=== PATIENT | male | born 1930 | race African-American/Black ===

== ENCOUNTER 2019-04-08 13:29 | Emergency (ER) | payer MEDICARE ==
[~2019-04-08] VITALS: Ht 182.9 cm; Wt 72.6 kg
--- NOTE | 2019-04-08 13:54 | NUR ---
brought by family with intermittent nose bleeding without dizziness. now bleeding controlled. took aspirin yesterday. placed telemetry monitor and changed the hospital gown.
[2019-04-08 14:42] LABS: BASOPHILS # (AUTO) 0.1 K/uL (0.0-8.0); BASOPHILS % (AUTO) 0.6 % (0.0-2.0); EOSINOPHILS # (AUTO) 0.2 K/uL (0.0-0.7); EOSINOPHILS % (AUTO) 1.6 % (0.0-7.0); HEMATOCRIT 41.1 % (36.7-47.1); HEMOGLOBIN 13.5 g/dL (12.5-16.3); LYMPHOCYTES # (AUTO) 1.3 K/uL (20.0-40.0); LYMPHOCYTES % (AUTO) 12.6 % (20.5-51.5); MEAN CORPUSCULAR HEMOGLOBIN 31.3 uug (23.8-33.4); MEAN CORPUSCULAR HGB CONC 33 g/dL (32.5-36.3); MEAN CORPUSCULAR VOLUME 94.9 fL (73.0-96.2); MONOCYTES % (AUTO) 9.9 % (0.0-11.0); NEUTROPHILS # (AUTO) 7.6 K/uL (1.8-8.9); NEUTROPHILS % (AUTO) 75.3 % (38.5-71.5); PLATELET COUNT (AUTO) 274 K/uL (152-348); RED BLOOD CELL COUNT(AUTO) 4.32 MIL/uL (4.06-5.63); WHITE BLOOD COUNT (AUTO) 10.1 K/uL (3.6-10.2)
--- NOTE | 2019-04-08 14:45 | NUR ---
blood drawn by lab aid
[2019-04-08 14:47] LABS: CREATININE 1.2 mg/dL (0.6-1.3); POTASSIUM 4.5 mmol/L (3.5-5.1)
[2019-04-08 14:52] LABS: BILIRUBIN,TOTAL 0.6 mg/dL (0.2-1.0); TOTAL PROTEIN, SERUM 6.9 g/dL (6.4-8.2)
--- NOTE | 2019-04-08 15:10 | NUR ---
applied nose clamp by Dr Langley.
--- NOTE | 2019-04-08 16:00 | NUR ---
no more bleeding. informed to visit ER if bleeding starts and does not stop and visit PMD ROSI. vss. cleared by Dr Langley
== END 2019-04-08 16:19 | disposition home or self-care (01) ==
LOC: ER 13:29
DX: R04.0 Epistaxis (principal); E11.9 Type 2 diabetes mellitus without complications; Z86.73 Personal history of transient ischemic attack (TIA), and cerebral infarction without residual deficits
CPT/HCPCS: 36415; 85025; 85610; A4217; A4663

== ENCOUNTER 2019-06-01 09:29 | Inpatient (IN) | payer MEDICARE ==
[~2019-06-01] VITALS: Ht 182.9 cm; Wt 69.4 kg
[2019-06-01] VITALS (10 sets, daily range): BP systolic 116–178; BP diastolic 65–143
--- NOTE | 2019-06-01 09:38 | NUR ---
PT IS IN ROOM #1B. DR SUBRAMANIAN EVALUATED THE PT.
[2019-06-01] MEDS ORDERED: ALBUTEROL SULFATE 2.5 MG/3 ML NEBU NEB ONE (09:45)
[2019-06-01] MEDS ORDERED: INSULIN REGULAR, HUMAN 300 UNIT/3 ML VIAL IV ONE (09:45)
[2019-06-01] MEDS ORDERED: IV NORMAL SALINE 1000 ML BAG IV ONE (09:45)
[2019-06-01] MEDS ORDERED: SODIUM BICARBONATE 8.4% 50 MEQ/50 ML VIAL IV ONE (09:45)
[2019-06-01] MEDS ORDERED: DEXTROSE 50% 50 ML DISP.SYRIN IV ONE (09:45)
--- NOTE | 2019-06-01 09:51 | NUR ---
Spoke to Pt's son,Boogie regarding medication, he states the Pt lives w/ him and does not take any medications. And per son, pt is full code.
[2019-06-01] MEDS ORDERED: CEFTRIAXONE 1 G in IV DEXTROSE 5% 50 ML IV ONE (10:00)
[2019-06-01] MEDS ORDERED: VANCOMYCIN IV 1,000 MG in IV DEXTROSE 5% 250 ML IV ONE (10:00)
[2019-06-01] MEDS ORDERED: INSULIN REGULAR, HUMAN 300 UNIT/3 ML VIAL ONE (10:05)
[2019-06-01] MEDS ORDERED: DEXTROSE 50% 50 ML DISP.SYRIN ONE (10:05)
[2019-06-01] MEDS ORDERED: SODIUM BICARBONATE 8.4% 50 MEQ/50 ML DISP.SYRIN IV ONE (10:06)
[2019-06-01] MEDS ORDERED: VANCOMYCIN IV 200 ML ONE (10:07)
[2019-06-01] MEDS ORDERED: CEFTRIAXONE /D5W 50ML IVPB **ER PYXIS IV ONE (10:07)
[2019-06-01 10:11] LABS: BASOPHILS % (AUTO) 0.3 % (0.0-2.0); EOSINOPHILS % (AUTO) 0.1 % (0.0-7.0); HEMATOCRIT 41.3 % (36.7-47.1); HEMOGLOBIN 13.4 g/dL (12.5-16.3); LYMPHOCYTES # (AUTO) 0.9 K/uL (20.0-40.0); LYMPHOCYTES % (AUTO) 6.2 % (20.5-51.5); MEAN CORPUSCULAR HEMOGLOBIN 30.1 uug (23.8-33.4); MEAN CORPUSCULAR HGB CONC 33 g/dL (32.5-36.3); MEAN CORPUSCULAR VOLUME 92.5 fL (73.0-96.2); MONOCYTES # (AUTO) 1.7 K/uL (2.0-10.0); MONOCYTES % (AUTO) 11.6 % (0.0-11.0); NEUTROPHILS % (AUTO) 81.8 % (38.5-71.5); PLATELET COUNT (AUTO) 292 K/uL (152-348); RED BLOOD CELL COUNT(AUTO) 4.47 MIL/uL (4.06-5.63); WHITE BLOOD COUNT (AUTO) 14.6 K/uL (3.6-10.2)
[2019-06-01 10:15] LABS: *BILIRUBIN,URIN NEGATIVE (NEGATIVE); *BLOOD, URINE 3+ (NEGATIVE); *CLARITY,URINE CLOUDY (CLEAR); *COLOR,URINE YELLOW (YELLOW); *KETONES,URINE 1+ (NEGATIVE); *UROBILINOGEN,URINE 0.2 E.U./dl (NORMAL); LEUKOCYTE ESTERASE ,URINE NEGATIVE (NEGATIVE); NITRITE, URINE NEGATIVE (NEGATIVE); UGLUCOSE NEGATIVE (NEGATIVE)
[2019-06-01 10:25] LABS: ETHANOL < 3 MG/DL (0-0)
[2019-06-01 10:27] LABS: ALANINE AMINOTRANSFERASE 12 U/L (16-63); ALKALINE PHOSPHATASE 290 U/L (50-136); ASPARTATE AMINOTRANSFERASE 10 U/L (15-37); BILIRUBIN,DIRECT 0.2 mg/dL (0.0-0.2); BILIRUBIN,TOTAL 0.7 mg/dL (0.2-1.0); CARBON DIOXIDE 22 mmol/L (21-32); CHLORIDE 104 mmol/L (98-107); GLUCOSE 114 mg/dL (74-106)
[2019-06-01 10:28] LABS: *AMPHETAMINE, URINE NEGATIVE (NEGATIVE); *BARBITURATE, URINE NEGATIVE (NEGATIVE); *CANNABINOID, URINE NEGATIVE (NEGATIVE); *COCCAINE, URINE NEGATIVE (NEGATIVE); *OPIATE, URINE NEGATIVE (NEGATIVE); *PHENCYCLIDINE SCREEN,URINE NEGATIVE (NEGATIVE)
[2019-06-01] MEDS ORDERED: ALBUTEROL SULFATE 2.5 MG/3 ML NEBU ONE (10:32)
[2019-06-01 10:35] LABS: ACETAMINOPHEN < 2.0 ug/mL (10-30)
[2019-06-01 10:37] LABS: CREATININE 16.9 mg/dL (0.6-1.3); POTASSIUM 9.4 mmol/L (3.5-5.1); UREA NITROGEN, BLOOD 187 mg/dL (7-18)
[2019-06-01 10:39] LABS: RBC,URINE TNTC /HPF (0-3)
[2019-06-01 10:40] LABS: BACTERIA,URINE FEW /HPF (NONE SEEN); SQUAMOUS EPITHELIAL CELL,UR FEW /HPF (NONE SEEN)
[2019-06-01 10:58] LABS: THYROID STIMULATING HORMONE 0.637 mIU/mL (0.358-3.740)
[2019-06-01] MEDS ORDERED: ONDANSETRON 4 MG/2 ML VIAL IV PRN (11:30)
[2019-06-01] MEDS ORDERED: Z GUARD REMEDY PASTE 57 GM TUBE TOP PRN ×2 (11:30→18:45)
[2019-06-01] MEDS ORDERED: HYDROCODONE/APAP 5-325MG TABLET PO PRN (11:30)
[2019-06-01] MEDS ORDERED: ACETAMINOPHEN 325 MG TABLET PO PRN (11:30)
[2019-06-01] MEDS ORDERED: MAGNESIUM HYDROXIDE 30 ML LIQUID UDC PO PRN (11:30)
--- NOTE | 2019-06-01 11:38 | NUR ---
PT PLACED ON BIPAP. IPAP 14/ EPAP 7/ RATE 20/ 100% FIO2. PT TOLERATING BIPAP FINE WITH NO DISTRESS
[2019-06-01 12:15] LABS: ABG BASE EXCESS -5.1 mmol/L; ABG PCO2 37.3 mmHg (35.0-45.0); ABG PH 7.347 (7.350-7.450); ABG PO2 114.4 mmHg (75.0-100.0); ABG SITE RIGHT RADIAL; ABG TOTAL HEMOGLOBIN 13.2 G/dL (13.5-18.0); COHb 1.2 % (0.5-1.5); MetHb 0.2 % (0.0-1.5); O2Hb 96.7 % (94.0-97.0); VENT MODE BIPAP
[2019-06-01] MEDS ORDERED: IV NS 1000 ML 1,000 ML IV PRN (13:00)
--- NOTE | 2019-06-01 13:05 | NUR ---
REPORT WAS GIVEN TO FOOTBALL SCOUT. PT WAS TRANSFERED TO CCU ROOM #2.
[2019-06-01] MEDS ORDERED: PIPERACILLIN/TAZO 2.25 G in IV DEXTROSE 5% 50 ML IV SCH (13:30)
--- NOTE | 2019-06-01 13:30 | NUR ---
Report received from Gab LANTIG[facility] ED. 88 yr old male new onset acute renal failure, new onset acute respiratory failur, altered level of consciousness. admitted into ccu 2. patient keeps moaning. on Bipap machine . sinus tachycardia 100/min. bp 185/78. afebrile temp 98.1 rectally. rand catheter intact Addendum: 06/01/19 at 1351 by KATYA JOE RN Amended: Links added.
--- NOTE | 2019-06-01 13:31 | NUR ---
CLINICAL PHARMACY NOTE: VANCOMYCIN DOSING Request for vancomycin dosing on 88 y/o male 182.85 cm 69.85kg for suspected infection temp 98.6 BUN 187 Scr 16.9 WBC 98.6 also on Zosyn, patient received vancomycin 1gm in ER. Will dose by levels due to poor renal function. Ordered a random vancomycin level for tomorrow morning. Will continue to monitor
[2019-06-01] MEDS ORDERED: PIPERACILLIN SODIUM/TAZOBACTAM 3.375 G in IV DEXTROSE 5% 50 ML IV SCH (14:00)
[2019-06-01 14:37] LABS: CARBON DIOXIDE 26 mmol/L (21-32); CHLORIDE 108 mmol/L (98-107); GLUCOSE 154 mg/dL (74-106)
[2019-06-01 14:44] LABS: POTASSIUM 6.4 mmol/L (3.5-5.1)
[2019-06-01 14:45] LABS: CREATININE 12.2 mg/dL (0.6-1.3); UREA NITROGEN, BLOOD 155 mg/dL (7-18)
[2019-06-01] MEDS ORDERED: SODIUM POLYSTYRENE SULFONATE ENEMA 30 G/120 ML BOTTLE RC ONE (15:00)
--- NOTE | 2019-06-01 15:40 | NUR ---
talked to Juan MASSEY re lab results and hypertension. orders received Addendum: 06/01/19 at 1540 by KATYA JOE RN Amended: Links added.
[2019-06-01] MEDS ORDERED: ALBUTEROL SULFATE 1.25 MG/3 ML NEBU NEB PRN (16:30)
[2019-06-01] MEDS ORDERED: IPRATROPIUM BROMIDE 0.5 MG/2.5 ML NEBU NEB PRN (16:30)
--- NOTE | 2019-06-01 16:38 | NUR ---
seen by dr Corrigan. orders received. Addendum: 06/01/19 at 1638 by KATYA JOE RN Amended: Susanna added. Addendum: 06/01/19 at 1642 by KATYA JOE RN Amended: Susanna added.
--- NOTE | 2019-06-01 16:41 | NUR ---
seen by dr rooney. orders received Addendum: 06/01/19 at 1642 by KATYA JOE RN Amended: Links added.
[2019-06-01] MEDS ORDERED: hydrALAZINE HCL 20 MG/1 ML VIAL IV PRN (16:45)
--- NOTE | 2019-06-01 17:41 | NUR ---
BIPAP REMOVED AND PLACED ON 2 LPM NASAL CANULA. PT SPO2 MAINTAINING WITHIN NORMAL LIMITS
--- NOTE | 2019-06-01 19:21 | NUR ---
Report given to Neo RN Addendum: 06/01/19 at 1921 by KATYA JOE RN Amended: Links added.
--- NOTE | 2019-06-01 19:30 | NUR ---
Report received. Patient admitted today DX: Hyperkalemia. Awake, oriented to name only. Able to follow simple commands. Mobile Home Lot Utility Worker weak, with tendency to face L side. Patient extremely restless, confused, tugging on the Mckinney catheter with small amounts of bleeding around the penile orifice and removing O2 cannula. Advised appropriately. LAC IV leaking; venancio'muna. HOB elevated. Assessment done; see flowsheet for complete data. Addendum: 06/01/19 at 2200 by ABHAY HUGHES RN Amended: Links added. Addendum: 06/01/19 at 2203 by ABHAY HUGHES RN Amended: Links added. Addendum: 06/01/19 at 2205 by ABHAY HUGHES RN Amended: Links added. Addendum: 06/01/19 at 2207 by ABHAY HUGHES RN Amended: Links added. Addendum: 06/01/19 at 2207 by ABHAY HUGHES RN Amended: Links added.
--- NOTE | 2019-06-01 19:45 | NUR ---
Continues to be restless. Bilateral mittens applied. Rails padded as patient has tendencies to hit rails.
--- NOTE | 2019-06-01 20:00 | NUR ---
PM care rendered. Patient denies pain. Skin care provided. Mepilex dressings applied to both hips (bony prominences) and sacrum. Family visited. Addendum: 06/01/19 at 2203 by ABHAY HUGHES RN Amended: Links added. Addendum: 06/01/19 at 2205 by ABHAY HUGEHS RN Amended: Links added. Addendum: 06/01/19 at 2207 by ABHAY TAECHARATKIJ RN Amended: Links added. Addendum: 06/01/19 at 2208 by ABHAY HUGHES RN Amended: Links added.
--- NOTE | 2019-06-01 20:45 | NUR ---
Seen by Lakisha MASSEY; with new order. Addendum: 06/01/19 at 6 by ABHAY HUGHES RN Amended: Links added. Addendum: 06/01/19 at 2207 by ABHAY HUGHES RN Amended: Links added. Addendum: 06/01/19 at 2207 by ABHAY HUGHES RN Amended: Links added.
[2019-06-01] MEDS: Z GUARD REMEDY PASTE 57 GM TUBE TOP SCH (20:50)
[2019-06-01 20:51] LABS: CARBON DIOXIDE 25 mmol/L (21-32); CHLORIDE 113 mmol/L (98-107); CREATININE 7.1 mg/dL (0.6-1.3); GLUCOSE 150 mg/dL (74-106); POTASSIUM 4.7 mmol/L (3.5-5.1)
[2019-06-01 20:53] LABS: UREA NITROGEN, BLOOD 110 mg/dL (7-18)
[2019-06-01] MEDS: CEFEPIME HCL 1 G in IV DEXTROSE 5% 50 ML IV SCH (20:56)
--- NOTE | 2019-06-01 21:00 | NUR ---
Results of latest BMP called to Zaid Dupree; with new order.
[2019-06-01] MEDS: IV 1/2NS 1000 ML 1,000 ML IV PRN (21:13)
--- NOTE | 2019-06-01 21:25 | NUR ---
HR in the 140's with family members at bedside and continually talking with each other. Family informed of visiting hours. Patient denies SOB or pain. Skin warm and dry. Converted to ST rate 110's after 5 minutes. Will monitor.
--- NOTE | 2019-06-01 22:00 | NUR ---
Zaid Dupree PAVING FOREMAN informed of patient's HR ranges 110's-120's. Patient denies pain. Sat above 94%. No orders from Zaid Dupree.
[2019-06-02] VITALS (19 sets, daily range): BP systolic 117–161; BP diastolic 55–100
[2019-06-02 05:04] LABS: BASOPHILS % (AUTO) 0.1 % (0.0-2.0); HEMATOCRIT 41.3 % (36.7-47.1); HEMOGLOBIN 13.4 g/dL (12.5-16.3); LYMPHOCYTES # (AUTO) 0.4 K/uL (20.0-40.0); LYMPHOCYTES % (AUTO) 3.1 % (20.5-51.5); MEAN CORPUSCULAR HEMOGLOBIN 29.7 uug (23.8-33.4); MEAN CORPUSCULAR HGB CONC 32 g/dL (32.5-36.3); MEAN CORPUSCULAR VOLUME 91.4 fL (73.0-96.2); MONOCYTES # (AUTO) 0.9 K/uL (2.0-10.0); MONOCYTES % (AUTO) 7.3 % (0.0-11.0); NEUTROPHILS # (AUTO) 11.3 K/uL (1.8-8.9); NEUTROPHILS % (AUTO) 89.5 % (38.5-71.5); PLATELET COUNT (AUTO) 290 K/uL (152-348); RED BLOOD CELL COUNT(AUTO) 4.52 MIL/uL (4.06-5.63); WHITE BLOOD COUNT (AUTO) 12.6 K/uL (3.6-10.2)
[2019-06-02 05:09] LABS: CARBON DIOXIDE 27 mmol/L (21-32); CHLORIDE 115 mmol/L (98-107); CHOLESTEROL 142 mg/dL (<200); CREATININE 4.1 mg/dL (0.6-1.3); GLUCOSE 142 mg/dL (74-106); HDL CHOLESTEROL 58 mg/dL (40-60); MAGNESIUM 3.5 mg/dL (1.8-2.4); PHOSPHOROUS 5.6 mg/dL (2.5-4.9); POTASSIUM 4.3 mmol/L (3.5-5.1); TRIGLYCERIDES 80 MG/DL (30-150); VANCOMYCIN,RANDOM 5.6 ug/mL (18.0-26.0)
[2019-06-02 05:13] LABS: UREA NITROGEN, BLOOD 83 mg/dL (7-18)
--- NOTE | 2019-06-02 05:25 | NUR ---
PCXR done. Patient repositioned; HOB elevated above 30 degrees at all times. Monitor: SVT rate 140's. AR=138/87. Patient denies pain, no SOB noted. Addendum: 06/02/19 at 0611 by ABHAY HUGHES RN Amended: Links added. Addendum: 06/02/19 at 16 by ABHAY HUGHES RN Amended: Links added. Addendum: 06/02/19 at 0616 by ABHAY TAECHARATKIJ RN Amended: Links added. Addendum: 06/02/19 at 0616 by ABHAY HUGHES RN Amended: Links added. Addendum: 06/02/19 at 0617 by ABHAY HUGHES RN Amended: Links added. Addendum: 06/02/19 at 0617 by ABHAY HUGHES RN Amended: Links added. Addendum: 06/02/19 at 0618 by ABHAY HUGHES RN Amended: Links added. Addendum: 06/02/19 at 0634 by ABHAY HUGHES RN Amended: Links added.
[2019-06-02] MEDS: IV 1/2NS 1000 ML 1,000 ML IV PRN ×3 (05:52→23:25)
--- NOTE | 2019-06-02 06:00 | NUR ---
Remains in SVT rate 140's. BPs stable. Stat EKG ordered. Call placed to [facility]. Spoke to Dr. Bishop re: patient's HR and abnormal labs. During conversation with MD patient's HR started to decrease. Converted to ST at 0602. No orders from Dr. Bishop.
--- NOTE | 2019-06-02 06:05 | NUR ---
Zaid Dupree called inquiring about patient's HR; informed. No orders.
--- NOTE | 2019-06-02 06:33 | NUR ---
Remains in ST 100's-110's. BP stable. Stat EKG cancelled.
--- NOTE | 2019-06-02 07:28 | NUR ---
More awake, asking for some OJ. Denies SOB and pain. Remains: ST 100's-110's. Report given to Cash LANTIGUA.
--- NOTE | 2019-06-02 07:51 | NUR ---
SBAR REPORT RECEIVE FROM ABHAY/RN,PT.IN BED,DROWSY,NO S/S OF ACUTE DISTRESS OR PAIN NOTED. SEE FLOW ASSESSMENT.
[2019-06-02 07:59] LABS: ABG BASE EXCESS -4.6 mmol/L; ABG HCO3 18.7 mmol/L; ABG PCO2 29.8 mmHg (35.0-45.0); ABG PH 7.416 (7.350-7.450); ABG PO2 80.7 mmHg (75.0-100.0); ABG SITE RIGHT RADIAL; ABG TOTAL HEMOGLOBIN 13.1 G/dL (13.5-18.0); COHb 1.2 % (0.5-1.5); MetHb 0.2 % (0.0-1.5); O2Hb 94.3 % (94.0-97.0); VENT MODE Nasal Cannula
--- NOTE | 2019-06-02 08:03 | NUR ---
PT.FAMILY AT BEDSIDE, UPDATED WITH PT.CONDITION AND PLAN OF CARE.
[2019-06-02] MEDS: Z GUARD REMEDY PASTE 57 GM TUBE TOP SCH ×2 (08:32→21:27)
[2019-06-02] MEDS: HEPARIN SODIUM,PORCINE 5,000 UNITS/ML VIAL SQ SCH ×2 (08:36→21:25)
[2019-06-02] MEDS ORDERED: VANCOMYCIN IV 1,000 MG in IV DEXTROSE 5% 250 ML IV ONE (09:00)
--- NOTE | 2019-06-02 09:42 | NUR ---
Pt. was seen by ASHLEY JAVIER NP.
[2019-06-02] MEDS: METOPROLOL TARTRATE 25 MG TABLET PO SCH ×3 (11:29→21:26)
[2019-06-02] MEDS: ASPIRIN 81 MG TAB.CHEW PO SCH (11:29)
--- NOTE | 2019-06-02 11:30 | NUR ---
Pt.was seen by LISA GOODMAN MD with new orders.
--- NOTE | 2019-06-02 13:44 | NUR ---
CLINICAL PHARMACY NOTE: VANCOMYCIN DOSING S:Continue vancomycin dosing on 88 y/o male 182.85 cm 69.85kg for sepsis with possible asp pneumonia. O:temp 98 BUN 83 Scr 4.1 WBC 12.6 also on Zosyn, Vancomycin random today at 0600:5.6 A/P:Since renal function is unstable(not on HD yet), will continue to dose per random level. Vancomycin 1gram IV x1 was given today at 0900. Will draw another random tomorrow am for further dosing.
--- NOTE | 2019-06-02 15:30 | NUR ---
Bedside swall eval done/video swall recommended,orderd.per .
--- NOTE | 2019-06-02 18:48 | NUR ---
Family at bedside,pt.up in the bed, watching TV.
--- NOTE | 2019-06-02 19:40 | NUR ---
Received pt up in bed, HOB elevated on specialty mattress. Family members at bedside. Discussed and reviewed plan of care, pt and family verbalizes understanding. O2 sats up to 100% on RA. No acute distress noted. F/C in place. Antibiotic therapy noted during shift. Aspiration and safety precautions observed. Plan for video swallow tomorrow. Pt turned and repositioned. HOB elevated maintained. Will continue plan of care.
--- NOTE | 2019-06-02 20:00 | NUR ---
ID specialist, NATALIA MASSEY, came to see and evaluate patient. Report was given. No new orders.
[2019-06-02] MEDS: CULTURELLE CAPSULE PO SCH (21:25)
[2019-06-02] MEDS: CEFEPIME HCL 1 G in IV DEXTROSE 5% 50 ML IV SCH (21:27)
[2019-06-03 00:42] VITALS: BP 132/82
[2019-06-03 04:00] VITALS: BP 152/89
[2019-06-03] MEDS: METOPROLOL TARTRATE 25 MG TABLET PO SCH (06:13)
--- NOTE | 2019-06-03 06:45 | NUR ---
Pt slept well throughout the shift. Kept pt clean and dry. HOB maintained. Continuous IVF running. Aspiration precautions observed. Continue plan of care.
[2019-06-03 06:53] LABS: BASOPHILS % (AUTO) 0.1 % (0.0-2.0); CARBON DIOXIDE 29 mmol/L (21-32); CHLORIDE 116 mmol/L (98-107); CREATININE 1.4 mg/dL (0.6-1.3); EOSINOPHILS # (AUTO) 0.1 K/uL (0.0-0.7); EOSINOPHILS % (AUTO) 0.8 % (0.0-7.0); GLUCOSE 87 mg/dL (74-106); HEMATOCRIT 37.8 % (36.7-47.1); HEMOGLOBIN 12.2 g/dL (12.5-16.3); LYMPHOCYTES # (AUTO) 0.8 K/uL (20.0-40.0); LYMPHOCYTES % (AUTO) 7.3 % (20.5-51.5); MAGNESIUM 2.7 mg/dL (1.8-2.4); MEAN CORPUSCULAR HEMOGLOBIN 30.5 uug (23.8-33.4); MEAN CORPUSCULAR HGB CONC 32 g/dL (32.5-36.3); MEAN CORPUSCULAR VOLUME 94.5 fL (73.0-96.2); MONOCYTES # (AUTO) 0.7 K/uL (2.0-10.0); MONOCYTES % (AUTO) 7.1 % (0.0-11.0); NEUTROPHILS # (AUTO) 8.9 K/uL (1.8-8.9); NEUTROPHILS % (AUTO) 84.7 % (38.5-71.5); PHOSPHOROUS 2.7 mg/dL (2.5-4.9); PLATELET COUNT (AUTO) 255 K/uL (152-348); POTASSIUM 3.5 mmol/L (3.5-5.1); RED BLOOD CELL COUNT(AUTO) 3.99 MIL/uL (4.06-5.63); UREA NITROGEN, BLOOD 40 mg/dL (7-18); WHITE BLOOD COUNT (AUTO) 10.5 K/uL (3.6-10.2)
--- NOTE | 2019-06-03 07:15 | NUR ---
Received pt up in bed, HOB elevated on specialty mattress. O2 sats up to 100% on RA. No acute distress noted. F/C in place. Antibiotic therapy noted during shift. Aspiration and safety precautions observed. Plan for video swallow today. HOB elevated maintained. Will continue to monitor.
[2019-06-03 08:02] VITALS: BP 175/96
[2019-06-03] MEDS ORDERED: IV D5W 1000ML 1,000 ML IV PRN (08:45)
[2019-06-03] MEDS ORDERED: AMLODIPINE 10 MG TABLET PO SCH (09:15)
[2019-06-03] MEDS: CULTURELLE CAPSULE PO SCH ×2 (09:31→21:00)
[2019-06-03] MEDS: ASPIRIN 81 MG TAB.CHEW PO SCH (09:31)
[2019-06-03] MEDS: Z GUARD REMEDY PASTE 57 GM TUBE TOP SCH ×2 (09:32→21:00)
[2019-06-03] MEDS: HEPARIN SODIUM,PORCINE 5,000 UNITS/ML VIAL SQ SCH ×2 (09:32→21:00)
[2019-06-03 12:00] VITALS: BP 149/105
[2019-06-03] MEDS ORDERED: BARIUM SULFATE 148 GM SUSP.RECON PO ONE (12:00)
[2019-06-03] MEDS ORDERED: BARIUM SULFATE 240 ML ORAL.SUSP PO ONE (12:00)
--- NOTE | 2019-06-03 13:32 | NUR ---
1:30pm: This SW tried seeing patient today in response to a SS consultation. Patient was asleep in his assigned CCU bed, unable to be aroused. SW spoke with RN Alba, who stated that patient was recently given [place] and was sleeping.
--- NOTE | 2019-06-03 13:58 | NUR ---
patient taken to video swallow eval.
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
[2019-06-03] MEDS ORDERED: CEFEPIME HCL 1 G in IV DEXTROSE 5% 50 ML IV SCH (15:00)
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
[2019-06-03 16:00] VITALS: BP 146/89
--- NOTE | 2019-06-03 16:00 | NUR ---
CLINICAL PHARMACY NOTE: VANCOMYCIN DOSING S: re-ordered Vancomycin since blood CX results showed G+ C in chains O:temp 98.1 BUN 40 Scr 1.4 WBC 10.5 also on Zosyn, A/P:will continue to dose by fall of level. Vancomycin 1gram IV x1 was given today at 1700. Will draw another random tomorrow for further dosing.
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
[2019-06-03] MEDS ORDERED: VANCOMYCIN IV 1,000 MG in IV DEXTROSE 5% 250 ML IV ONE (17:00)
--- NOTE | 2019-06-03 17:00 | NUR ---
1 attempt made to insert NG tube, patient became agitated and pulled at the tube. Family requested no further insertion efforts made and options for a G-Tube discussed with family per labor trainer. Family will have a meeting with all siblings to decide on an gtube placement for Thursday. Lauren Dupree notifed of outcome and family wishes.
--- NOTE | 2019-06-03 19:18 | NUR ---
Report given to restaurant shift leader nurse, patient in bed awake, confused. No distress noted at this time, tolerating room air 97% oxygen saturation. All needs met, rand catheter draining clear yellow urine. All needs met.
[2019-06-03] MEDS ORDERED: HALOPERIDOL LACTATE 5 MG/1 ML VIAL IM ONE (20:00)
--- NOTE | 2019-06-03 20:20 | NUR ---
Patient pulled out IV, etc. Refuses all cares.
[2019-06-03] MEDS ORDERED: ASPI81TA31 PO (21:28)
[2019-06-03] MEDS ORDERED: LEVO750T21 PO (21:28)
[2019-06-03] MEDS ORDERED: METO-357 PO (21:28)
--- NOTE | 2019-06-03 21:40 | NUR ---
Patient discharged to personal car; refused all cares; with daughter Fely. Conversation AMA, confort measures. But, they want nature to take its course; including, . Zaid Dupree N.P. talked to Fely 3 times. Addendum: 06/03/19 at 2158 by AGNES RAMIREZ RN comfort measures
[2019-06-03] MEDS ORDERED: METOPROLOL TARTRATE 25 MG TABLET PO SCH (22:00)
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
== END 2019-06-03 21:40 | disposition left against medical advice (07) | DRG 871 ==
LOC: ER 09:29 → CCU 13:06 → TELE-TD3 06-02 12:37 → CCU 06-03 10:01
PROVIDERS: ADMIT Nurse Practitioner Acute Care; ATTEND Nurse Practitioner Acute Care
PROC: 5A09357 Assistance with Respiratory Ventilation, Less than 24 Consecutive Hours, Continuous Positive Airway Pressure (ICD-10-PCS; principal; 2019-06-01)
DX: A41.50 Gram-negative sepsis, unspecified (principal); J96.01 Acute respiratory failure with hypoxia; I21.A1 Myocardial infarction type 2; G93.41 Metabolic encephalopathy; R40.2222 Coma scale, best verbal response, incomprehensible words, at arrival to emergency department; R40.2342 Coma scale, best motor response, flexion withdrawal, at arrival to emergency department; R40.2122 Coma scale, eyes open, to pain, at arrival to emergency department; J18.9 Pneumonia, unspecified organism; N17.0 Acute kidney failure with tubular necrosis; I69.354 Hemiplegia and hemiparesis following cerebral infarction affecting left non-dominant side; E44.1 Mild protein-calorie malnutrition; E87.0 Hyperosmolality and hypernatremia; E87.5 Hyperkalemia; I13.10 Hypertensive heart and chronic kidney disease without heart failure, with stage 1 through stage 4 chronic kidney disease, or unspecified chronic kidney disease; E11.22 Type 2 diabetes mellitus with diabetic chronic kidney disease; N18.9 Chronic kidney disease, unspecified; Z51.5 Encounter for palliative care; L89.150 Pressure ulcer of sacral region, unstageable; E86.0 Dehydration; R65.20 Severe sepsis without septic shock
CPT/HCPCS: 36415; 36600; 70030-TC; 70450; 71045; 74230; 76770; 80307; 83605; 83735; 84100; 84443; 85025; 85730; 87040; 87086; 93005; 93307; 94660; 94664; A4663; G0378; G0480; G0480-TC; J0360; J0692; J0696; J1630; J1644; J1815; J2543; J3370; J3490; J3590; J7030; J7060